=== PATIENT | male | born 1955 | race Caucasian/White ===

== ENCOUNTER 2017-01-31 12:05 | Emergency (ER) | payer OTHER ==
[~2017-01-31] VITALS: Ht 172.7 cm; Wt 54.5 kg
[~2017-01-31 12:05] MED LIST: CEFTIN500 MG PO; DELSYM30 MG/5 M1 PO; DIFLUCAN200 MG PO; LEVAQUIN500 MG PO; LEVOFLOXACIN500 MG PO; MUCINEX DM ER1 EACH PO; NICODERM CQ1 EAC1 TD; NOHOMEMEDS; PHENERGAN-CODE120 ML PO; PRILOSEC20 MG PO; REGLAN10 MG PO; SPIRIVA RESPIMAT4 GM IH; TESSALON PERLE100 MG PO; ULTRAM50 MG PO; VENTOLIN HFA18 GM IH
[2017-01-31] MEDS ORDERED: ULTRAM50 MG PO (12:36)
[2017-01-31] MEDS ORDERED: IBUPROFEN200 M1 PO (12:37)
[2017-01-31] MEDS ORDERED: LORAZEPAM0.5 MG PO (12:40)
[2017-01-31] MEDS ORDERED: NAPROXEN500 MG PO (12:40)
[2017-01-31 13:30] LABS: EOSINOPHIL (%) 1.1 % (0-5); EOSINOPHIL COUNT 0.1 K/uL (0-0.3); HEMATOCRIT 34.6 % (38.0-50.0); IMMATURE GRANULOCYTE (%) 0.6 % (0.0-0.7); IMMATURE GRANULOCYTE COUNT 0.1 K/uL; INSTRUMENT ABS NEUTROPHIL CT 8.4 K/uL; LYMPHOCYTE COUNT 0.7 K/uL (1.0-2.8); MCH 31.4 PG (29.0-34.0); MCHC 32.7 G/DL (30.0-36.0); MCV 96.1 FL (86-99); MEAN PLAT.VOLUME 8.5 uM^3 (9.0-12.4); MONOCYTE (%) 9.1 % (3-12); MONOCYTE COUNT 0.9 K/uL (0-0.8); NEUTROPHIL (%) 82.2 % (45-76); NEUTROPHIL COUNT 8.4 K/uL (1.8-6.4); PLATELET COUNT 421 K/uL (156-360); RBC DIS.WIDTH-CV 13.2 % (11.8-14.6); RBC DIS.WIDTH-SD 47.5 % (39-53); WHITE BLOOD COUNT 10.2 K/uL (4.1-10.2)
[2017-01-31 13:43] LABS: CHLORIDE 103 mEq/L (99-109); SODIUM 137 mEq/L (136-147)
[2017-01-31 13:44] LABS: GLUCOSE 91 mg/dL (70-99)
[2017-01-31 13:46] LABS: ANION GAP 13 MEQ/L (2-14)
[2017-01-31 13:48] LABS: GFR ESTIMATE (CALCULATED) > 59 mL/min/
[2017-01-31 13:49] LABS: UREA NITROGEN (BUN) 15 mg/dL (9-23)
[2017-01-31] MEDS ORDERED: NORCO 7.5/321 TABLET PO (17:18)
[2017-01-31 17:38] VITALS: BP 126/81
== END 2017-01-31 17:39 | disposition home or self-care (01) ==
LOC: EXP 12:05 → EME 12:05 → EXP 17:39
PROVIDERS: Physician Assistant
DX: M25.551 Pain in right hip (principal); C34.90 Malignant neoplasm of unspecified part of unspecified bronchus or lung; Z87.891 Personal history of nicotine dependence
CPT/HCPCS: 73502; 80048; 81003; 85025; 99281; 99285; J2270; J2405; J7030

== ENCOUNTER 2017-04-11 14:54 | Emergency (ER) | payer OTHER ==
[~2017-04-11] VITALS: Ht 172.7 cm; Wt 46.6 kg
[~2017-04-11 14:54] MED LIST changes: +IBUPROFEN200 M1 PO; +LORAZEPAM0.5 MG PO; +NAPROXEN500 MG PO; +NORCO 7.5/321 TABLET PO
[2017-04-11 16:28] LABS: EOSINOPHIL (%) 0.1 % (0-5); HEMATOCRIT 32.5 % (38.0-50.0); IMMATURE GRANULOCYTE (%) 0.5 % (0.0-0.7); IMMATURE GRANULOCYTE COUNT 0.1 K/uL; INSTRUMENT ABS NEUTROPHIL CT 15.3 K/uL; LYMPHOCYTE COUNT 0.6 K/uL (1.0-2.8); MCH 31.3 PG (29.0-34.0); MCHC 32.3 G/DL (30.0-36.0); MCV 96.7 FL (86-99); MEAN PLAT.VOLUME 8.8 uM^3 (9.0-12.4); MONOCYTE (%) 5.3 % (3-12); MONOCYTE COUNT 0.9 K/uL (0-0.8); NEUTROPHIL (%) 90.7 % (45-76); NEUTROPHIL COUNT 15.3 K/uL (1.8-6.4); PLATELET COUNT 464 K/uL (156-360); RBC DIS.WIDTH-CV 12.9 % (11.8-14.6); RBC DIS.WIDTH-SD 45.5 % (39-53); RED BLOOD COUNT 3.36 M/uL (4.00-5.50); WHITE BLOOD COUNT 16.9 K/uL (4.1-10.2)
[2017-04-11 16:39] LABS: CHLORIDE 103 mEq/L (99-109); POTASSIUM 4.9 mEq/L (3.7-5.4); SODIUM 138 mEq/L (136-147)
[2017-04-11 16:40] LABS: GLUCOSE 118 mg/dL (70-99)
[2017-04-11 16:42] LABS: ANION GAP 13 MEQ/L (2-14)
[2017-04-11 16:44] LABS: GFR ESTIMATE (CALCULATED) 47 mL/min/
[2017-04-11 16:45] LABS: UREA NITROGEN (BUN) 23 mg/dL (9-23)
[2017-04-11 16:50] LABS: TROP-I INTERPRETATION NEGATIVE; TROPONIN-I < 0.01 ng/mL (0.0-0.30)
[2017-04-11 18:21] LABS: ADD MIUA? YES; BILIRUBIN NEGATIVE; BLOOD SMALL; COLOR YELLOW ((YELLOW)); GLUCOSE (STRIP) NEGATIVE; KETONES NEGATIVE; LEUKOCYTES NEGATIVE; NITRITE NEGATIVE; PROTEIN (STRIP) 30; SPECIFIC GRAVITY 1.012 (1.000-1.030)
[2017-04-11 18:40] LABS: BACTERIA RARE /HPF; EPITHELIAL CELLS RARE /HPF; MUCUS TRACE /LPF; RED BLOOD CELLS 0-5 /HPF (0-5); UCUL ADDED? NO; WHITE BLOOD CELLS 0-5 /HPF (0-5)
[2017-04-11 20:01] VITALS: BP 120/85
== END 2017-04-11 20:02 | disposition home or self-care (01) ==
LOC: EME 14:54
PROVIDERS: Emergency Medicine
DX: K92.2 Gastrointestinal hemorrhage, unspecified (principal); C34.90 Malignant neoplasm of unspecified part of unspecified bronchus or lung; Z87.891 Personal history of nicotine dependence
CPT/HCPCS: 71010; 80048; 81003; 83880; 84484; 85025; 85610; 85730; 99281; 99284; J7030

== ENCOUNTER → 2018-02-11 | Outpatient (CLI) | payer OTHER ==
[~2018-02-11] MED LIST changes: +ALEVE220 M2 PO
[2018-02-11 10:29] LABS: HEMATOCRIT 30.9 % (38.0-50.0); HEMOGLOBIN 9.7 G/DL (12.5-16.6); MCHC 31.4 G/DL (30.0-36.0); MCV 92.5 FL (86-99); PLATELET COUNT 347 K/uL (156-360); RBC DIS.WIDTH-CV 14.7 % (11.8-14.6); RBC DIS.WIDTH-SD 50.4 % (39-53); RED BLOOD COUNT 3.34 M/uL (4.00-5.50); WHITE BLOOD COUNT 7.3 K/uL (4.1-10.2)
[2018-02-11 10:35] LABS: INTER. NORMALIZED RATIO 1.3
[2018-02-11 10:38] LABS: PTT 33.7 SEC (25-37)
== END | disposition home or self-care (01) ==
LOC: OPR 09:26 → EDSTATUS 10:00 → OPR 10:00
PROVIDERS: Internal Medicine
PROC: 0PB43ZX Excision of Thoracic Vertebra, Percutaneous Approach, Diagnostic (ICD-10-PCS; principal; 2018-02-11)
DX: C34.91 Malignant neoplasm of unspecified part of right bronchus or lung (principal); R93.8 Abnormal findings on diagnostic imaging of other specified body structures; Z87.891 Personal history of nicotine dependence; K21.9 Gastro-esophageal reflux disease without esophagitis; Z80.1 Family history of malignant neoplasm of trachea, bronchus and lung
CPT/HCPCS: 77012; 85027; 85610; 85730; J3010